=== PATIENT | female | born 1950 | race Caucasian/White ===

== ENCOUNTER → 2019-06-03 | Outpatient (CLI) | payer MEDICARE, OTHER ==
[~2019-06-03] MED LIST: AMITIZA; AMLO5 PO; ATOR10 PO; CLON.1 PO; COPAXONE40 MG/1 ML SC; CYCL0.05OP BOTHEYES; CYCL0.05OP OP; Calcium Magnes1 EAC1 PO; Cymbalta60 MG PO; DOCU100 PO; DULO60 PO; ESTRADIOL42.5 GM VAG; OLME20 PO; OLME40 PO; OMEP40CA12 PO; OXYACE5T PO; QUET200 PO; Seroquel50 MG PO; TEMA15 PO; THYR60 PO; TRAM50 PO; VITAMIN D32000 UNIT PO
== END | disposition home or self-care (01) ==
LOC: LAB 10:48 → LAB SHORT 10:48
DX: N39.0 Urinary tract infection, site not specified (principal)
CPT/HCPCS: 87077; 87086; 87186

== ENCOUNTER → 2020-10-18 | Outpatient (CLI) | payer MEDICARE, BC | LOC: LAB SHORT 12:05 → LAB 12:05 | DX: D48.5 Neoplasm of uncertain behavior of skin (principal); Z88.1 Allergy status to other antibiotic agents; Z88.8 Allergy status to other drugs, medicaments and biological substances | CPT/HCPCS: 88305 ==

== ENCOUNTER → 2020-12-18 | Outpatient (CLI) | payer MEDICARE, BC | LOC: LAB 15:23 → LAB SHORT 15:23 | DX: C44.519 Basal cell carcinoma of skin of other part of trunk (principal); Z88.8 Allergy status to other drugs, medicaments and biological substances; Z88.1 Allergy status to other antibiotic agents | CPT/HCPCS: 88305 ==

== ENCOUNTER → 2021-05-23 | Outpatient (CLI) | payer MEDICARE, BC ==
[2021-05-24 09:10] LABS: Stool Occult Bld Immuno 1 Negative (NEGATIVE)
== END ==
LOC: LAB 10:30 → LAB SHORT 10:30
PROVIDERS: Family Medicine
DX: Z12.11 Encounter for screening for malignant neoplasm of colon (principal)
CPT/HCPCS: G0328

== ENCOUNTER → 2022-08-11 | Outpatient (CLI) | payer MEDICARE, BC | END | disposition home or self-care (01) | LOC: LAB SHORT 15:21 → PLD 15:21 | DX: D48.5 Neoplasm of uncertain behavior of skin (principal) | CPT/HCPCS: 88304 ==

== ENCOUNTER → 2023-10-19 | Outpatient (CLI) | payer MEDICARE, BC | END | disposition home or self-care (01) | LOC: LAB SHORT 14:16 → LAB 14:16 | DX: M54.50 Low back pain, unspecified (principal); R82.90 Unspecified abnormal findings in urine | CPT/HCPCS: 87086 ==

== ENCOUNTER → 2024-08-02 | Outpatient (CLI) | payer MEDICARE, BC | LOC: LAB 08:40 → LAB SHORT 08:40 | DX: R82.90 Unspecified abnormal findings in urine (principal) | CPT/HCPCS: 87086 ==

== ENCOUNTER → 2024-10-06 | Outpatient (CLI) | payer MEDICARE, BC | LOC: LAB 07:00 → LAB SHORT 07:00 → LAB FUT 09-20 13:50 | DX: N39.0 Urinary tract infection, site not specified (principal); N39.46 Mixed incontinence; N99.3 Prolapse of vaginal vault after hysterectomy | CPT/HCPCS: 81050 ==